=== PATIENT | female | born 1985 | race Caucasian/White ===

== ENCOUNTER 2020-11-22 05:53 | Day surgery (SDC) | payer BC ==
[2020-11-22] MEDS ORDERED: Lactated Ringers 1,000 ML IV SCH (06:30)
[2020-11-22] MEDS ORDERED: Versed 2 MG/2 ML Injection ONE (08:08)
[2020-11-22] MEDS ORDERED: DIPRIVAN 200 MG/20 ML IV ONE (08:08)
[2020-11-22 09:32] VITALS: O2SAT 100
[2020-11-22 09:46] VITALS: BP 132/72; PULSE 74
--- NOTE | 2020-11-22 10:47 | OP ---
SURGERY DATE/TIME: 11/21/2020 0808 PREOPERATIVE DIAGNOSIS: Gastroesophageal reflux and epigastric pain. POSTOPERATIVE DIAGNOSIS: Mild gastritis and mild duodenitis. PROCEDURE: Esophagogastroduodenoscopy with cold forceps biopsy. SURGEON: Dr. Dumont. ANESTHESIA: Medications were given by the anesthesia department. BRIEF HISTORY: The patient is a 35 year old white female who reports over the past month she has been having epigastric burning pain with radiation up into the throat area actually feeling like something is stuck in her throat. The patient has been taking omeprazole with some improvement but still has the feeling of something stuck in her throat. The patient is felt the need to have endoscopic evaluation. She was appraised of the risks of the procedure including the risk of perforation, phlebitis, untoward reaction to medication, bleeding and missed lesions. The patient verbalized her understanding and desired to have the procedure performed. DESCRIPTION OF PROCEDURE: The patient was given the medications by the anesthesia department. She had continuous pulse oximetry, ECG monitoring, intermittent blood pressure monitoring and tidal CO2 monitoring during the examination. She was placed in the left lateral decubitus position. A bite block was placed. The flexible Olympus gastroscope was used to intubate the oropharynx. A view of the larynx was obtained and was normal. The scope was easily introduced in the esophagus which appeared to be normal throughout its length. The stomach was entered where normal gastric rugal folds were seen and these distended nicely with insufflation of air. The scope was passed along the greater curvature of the stomach to the antrum. The pylorus was encountered and intubated and duodenum inspected and found to be slightly erythematous but no erosions or ulcerations were noted. The scope is withdrawn towards the stomach. A retroflex view was obtained of the lesser curvature, fundus and cardia regions of the stomach and these appeared to be essentially normal. The scope was then redirected towards the gastric antrum where biopsies were obtained to rule out the presence of Helicobacter pylori-type organisms. The scope was then removed from the patient who tolerated the procedure well and was sent back to outpatient recovery in good condition.
== END 2020-11-22 09:30 | disposition home or self-care (01) ==
LOC: SDC 05:53
PROVIDERS: ATTEND Family Medicine
DX: K29.70 Gastritis, unspecified, without bleeding (principal); K29.80 Duodenitis without bleeding; R10.13 Epigastric pain; K21.9 Gastro-esophageal reflux disease without esophagitis
CPT/HCPCS: 84703; J2250; J2704